=== PATIENT | female | born 1975 | race Caucasian/White ===

== ENCOUNTER 2022-04-08 23:25 | Inpatient (IN) | payer BC ==
[~2022-04-08] VITALS: Ht 165.1 cm; Wt 43.3 kg
[2022-04-09 01:00] LABS: CHLORIDE 106 mEq/L (98-107)
[2022-04-09 01:17] LABS: BASOPHILS % 0.4 % (0.0-2.0); EOSINOPHILS % 0.1 % (0.0-5.0); HEMATOCRIT. 29.4 % (36.0-48.0); HEMOGLOBIN. 9.4 g/dL (12.0-16.0); LYMPHOCYTES % 29.3 % (20.0-50.0); MEAN CORPUSCULAR HEMOGLOBIN 23.9 pg (28.0-32.0); MEAN PLATELET VOLUME 6.6 fl (7.4-10.4); MONOCYTES % 6.6 % (2.0-8.0); NEUTROPHILS % 63.6 % (40.0-76.0); PLATELET 252 x1000/uL (130-400); RED BLOOD CELL COUNT 3.92 mill/uL (4.2-5.4); RED CELL DISTRIBUTION WIDTH 18.1 % (11.6-14.6)
[2022-04-09] MEDS ORDERED: ASPIRIN 81MG TABLET PO ONE (03:45)
[2022-04-09] MEDS ORDERED: ONDANSETRON HCL 4MG/2ML INJ IV PRN (14:30)
[2022-04-09] MEDS: SODIUM CHLORIDE 0.9% 1,000 ML IV SCH (14:30)
[2022-04-09] MEDS ORDERED: ACETAMINOPHEN 325MG TABLET PO PRN (14:30)
[2022-04-09 14:59] LABS: BASOPHILS % 0.3 % (0.0-2.0); EOSINOPHILS % 0.2 % (0.0-5.0); HEMATOCRIT. 28.2 % (36.0-48.0); LYMPHOCYTES % 32.1 % (20.0-50.0); MEAN CORPUSCULAR HEMOGLOBIN 24.2 pg (28.0-32.0); MEAN PLATELET VOLUME 6.3 fl (7.4-10.4); MONOCYTES % 6.9 % (2.0-8.0); NEUTROPHILS % 60.5 % (40.0-76.0); PLATELET 229 x1000/uL (130-400); RED BLOOD CELL COUNT 3.72 mill/uL (4.2-5.4); RED CELL DISTRIBUTION WIDTH 17.9 % (11.6-14.6)
[2022-04-09] MEDS ORDERED: ENOXAPARIN 30MG/0.3ML SYR SUBCUT SCH (15:00)
[2022-04-09 15:03] LABS: CHLORIDE 106 mEq/L (98-107)
[2022-04-09] MEDS ORDERED: FOLIC ACID 1 MG, THIAMINE HCL 100 MG, MVI, ADULT NO.1 10 ML in DEXTROSE 5% WATER 1,000 ML IV NR ×4 (16:30)
[2022-04-09] MEDS: PANTOPRAZOLE SODIUM 40 MG/VIAL IV SCH (16:48)
[2022-04-09] MEDS: POTASSIUM CHLORIDE 20MEQ TABLET SR PO SCH (16:48)
[2022-04-09] MEDS ORDERED: METHYLPHENIDATE HCL 5MG TABLET PO SCH (17:00)
[2022-04-09 17:27] VITALS: BP 122/64
[2022-04-09 17:47] VITALS: BP 122/64
[2022-04-09] MEDS ORDERED: LORA-249 PO (18:00)
[2022-04-09] MEDS ORDERED: VENL-180 PO (18:00)
[2022-04-09] MEDS ORDERED: TRAZ-251 PO (18:00)
[2022-04-09] MEDS ORDERED: METH10CP15 PO (18:00)
[2022-04-09] MEDS ORDERED: BUPR100T13 PO (18:00)
[2022-04-09] MEDS ORDERED: ONDA4TAB11 PO (18:00)
[2022-04-09] MEDS ORDERED: INFLUENZA VACCINE 05/PF 0.5 ML SYRINGE IM ONE (18:30)
[2022-04-09 20:00] VITALS: BP 145/81
[2022-04-09] MEDS ORDERED: VENLAFAXINE HCL 75MG TABLET PO SCH (21:00)
[2022-04-09] MEDS: VENLAFAXINE HCL 37.5MG TABLET PO SCH (22:29)
[2022-04-09] MEDS: BUPROPION HCL 100MG SR TABLET PO SCH (23:04)
[2022-04-09] MEDS: TRAZODONE HCL 50MG TABLET PO SCH (23:04)
[2022-04-09] MEDS: LORAZEPAM 0.5MG TABLET PO PRN (23:05)
[2022-04-10] VITALS: BP 113/76
[2022-04-10] MEDS: CYANOCOBALAMIN 1000MCG/ML VIAL IM SCH ×2 (01:21→08:15)
[2022-04-10] MEDS: THIAMINE HCL 500 MG in SODIUM CHLORIDE 0.9% 95 ML IV SCH ×3 (01:21→16:37)
[2022-04-10] MEDS: FOLIC ACID 1MG TABLET PO SCH ×2 (01:22→08:16)
[2022-04-10 02:28] LABS: FOLIC ACID (FOLATE) SERUM >20 ng/mL ng/mL (>5.38); VITAMIN B12 SERUM 272 pg/mL (211-911)
[2022-04-10 02:46] LABS: CLARITY URINE TURBID (CLEAR); COLOR URINE YELLOW (YELLOW); KETONES URINE NEGATIVE (NEGATIVE); LEUKOCYTE ESTERASE URINE 1+ (NEGATIVE); NITRITE URINE NEGATIVE (NEGATIVE); OCCULT BLOOD URINE NEGATIVE (NEGATIVE); PH URINE 6.5 (4.5-8.0); PROTEIN URINE NEGATIVE (NEGATIVE); SPECIFIC GRAVITY URINE 1.017 (1.005-1.030)
[2022-04-10 03:17] LABS: *AMPHETAMINES SCREEN URINE NEGATIVE (NEGATIVE); *BARBITURATES SCREEN URINE NEGATIVE (NEGATIVE); *BENZODIAZEPINES SCREEN URINE NEGATIVE (NEGATIVE); *COCAINE SCREEN URINE NEGATIVE (NEGATIVE); CANNABINOID URINE SCREEN NEGATIVE (NEGATIVE); METHADONE URINE SCREEN NEGATIVE (NEGATIVE); OPIATES URINE SCREEN NEGATIVE (NEGATIVE); PHENCYCLIDINE URINE SCREEN NEGATIVE (NEGATIVE)
[2022-04-10 04:00] VITALS: BP 107/70
[2022-04-10] MEDS: SODIUM CHLORIDE 0.9% 1,000 ML IV SCH ×2 (06:06→16:37)
[2022-04-10 06:56] LABS: BASOPHILS % 0.5 % (0.0-2.0); EOSINOPHILS % 0.5 % (0.0-5.0); LYMPHOCYTES % 46.9 % (20.0-50.0); MEAN CORPUSCULAR HEMOGLOBIN 24.1 pg (28.0-32.0); MEAN CORPUSCULAR VOLUME 74.8 fL (81.0-99.0); MEAN PLATELET VOLUME 6.5 fl (7.4-10.4); NEUTROPHILS % 47.1 % (40.0-76.0); PLATELET 217 x1000/uL (130-400); RED BLOOD CELL COUNT 3.75 mill/uL (4.2-5.4); RED CELL DISTRIBUTION WIDTH 17.9 % (11.6-14.6)
[2022-04-10 07:16] LABS: CHLORIDE 108 mEq/L (98-107)
[2022-04-10 07:23] LABS: CREATINE KINASE 52 IU/L (26-192); CREATINE KINASE MB FRACTION 1.2 ng/mL (0.5-3.6)
[2022-04-10 08:00] VITALS: BP 91/54
[2022-04-10] MEDS: ASPIRIN 81MG TABLET PO SCH (08:22)
[2022-04-10] MEDS: VENLAFAXINE HCL 37.5MG TABLET PO SCH ×2 (08:23→21:00)
[2022-04-10] MEDS: BUPROPION HCL 100MG SR TABLET PO SCH ×3 (08:23→16:37)
[2022-04-10] MEDS: PANTOPRAZOLE SODIUM 40 MG/VIAL IV SCH (08:23)
[2022-04-10] MEDS: POTASSIUM CHLORIDE 20MEQ TABLET SR PO SCH (08:23)
[2022-04-10] MEDS ORDERED: POTASSIUM CHLORIDE 20MEQ TABLET SR PO NR (10:30)
[2022-04-10 12:00] VITALS: BP 104/53
[2022-04-10 16:00] VITALS: BP 93/74
[2022-04-10] MEDS: METHYLPHENIDATE HCL 5MG TABLET PO SCH (16:37)
[2022-04-10 20:00] VITALS: BP 91/54
[2022-04-10] MEDS: TRAZODONE HCL 50MG TABLET PO SCH (21:17)
[2022-04-10] MEDS: LORAZEPAM 0.5MG TABLET PO PRN (21:17)
[2022-04-11] VITALS: BP 103/66
[2022-04-11 04:00] VITALS: BP 96/60
[2022-04-11 06:14] LABS: BASOPHILS % 0.5 % (0.0-2.0); EOSINOPHILS % 0.7 % (0.0-5.0); HEMATOCRIT. 26.3 % (36.0-48.0); HEMOGLOBIN. 8.3 g/dL (12.0-16.0); LYMPHOCYTES % 51.4 % (20.0-50.0); MEAN CORPUSCULAR HEMOGLOBIN 24.1 pg (28.0-32.0); MEAN CORPUSCULAR VOLUME 76.7 fL (81.0-99.0); MEAN PLATELET VOLUME 6.5 fl (7.4-10.4); MONOCYTES % 7.4 % (2.0-8.0); PLATELET 195 x1000/uL (130-400); RED BLOOD CELL COUNT 3.43 mill/uL (4.2-5.4); RED CELL DISTRIBUTION WIDTH 18.1 % (11.6-14.6)
[2022-04-11] MEDS: SODIUM CHLORIDE 0.9% 1,000 ML IV SCH (07:03)
[2022-04-11 07:58] LABS: CHLORIDE 113 mEq/L (98-107)
[2022-04-11 08:00] VITALS: BP 106/69
[2022-04-11] MEDS ORDERED: NITROFURANTOIN 100MG M/M CAPSULE PO SCH (09:00)
[2022-04-11] MEDS: PANTOPRAZOLE SODIUM 40 MG/VIAL IV SCH (09:00)
[2022-04-11] MEDS: THIAMINE HCL 500 MG in SODIUM CHLORIDE 0.9% 95 ML IV SCH ×2 (09:14→17:00)
[2022-04-11] MEDS: CYANOCOBALAMIN 1000MCG/ML VIAL IM SCH (09:20)
[2022-04-11] MEDS: FOLIC ACID 1MG TABLET PO SCH (09:21)
[2022-04-11] MEDS: ASPIRIN 81MG TABLET PO SCH (09:21)
[2022-04-11] MEDS: METHYLPHENIDATE HCL 5MG TABLET PO SCH ×3 (09:21→17:54)
[2022-04-11] MEDS: BUPROPION HCL 100MG SR TABLET PO SCH ×3 (09:21→17:54)
[2022-04-11] MEDS: VENLAFAXINE HCL 37.5MG TABLET PO SCH (09:21)
[2022-04-11] MEDS: POTASSIUM CHLORIDE 20MEQ TABLET SR PO SCH (09:21)
[2022-04-11] MEDS ORDERED: NITR-87 MT (11:41)
[2022-04-11] MEDS ORDERED: THIA100T88 MT (11:41)
[2022-04-11 12:00] VITALS: BP 112/75
[2022-04-11 14:26] VITALS: BP 112/75
== END 2022-04-11 18:15 | disposition home or self-care (01) | DRG 71 ==
LOC: ER 23:25 → 3WST 04-09 03:50 → EDBEDREQ 04-09 04:04 → EDBEDREQTM 04-09 04:04
PROVIDERS: ADMIT Internal Medicine; ATTEND Internal Medicine
DX: G93.41 Metabolic encephalopathy (principal); F50.00 Anorexia nervosa, unspecified; R64 Cachexia; D64.9 Anemia, unspecified; E87.6 Hypokalemia; R41.0 Disorientation, unspecified; F41.9 Anxiety disorder, unspecified; F32.9 Major depressive disorder, single episode, unspecified; E63.9 Nutritional deficiency, unspecified; F90.9 Attention-deficit hyperactivity disorder, unspecified type; R07.9 Chest pain, unspecified; Z90.49 Acquired absence of other specified parts of digestive tract; Z79.899 Other long term (current) drug therapy; Z86.59 Personal history of other mental and behavioral disorders; Z87.891 Personal history of nicotine dependence; Z98.84 Bariatric surgery status; Z80.0 Family history of malignant neoplasm of digestive organs; Z20.822 Contact with and (suspected) exposure to COVID-19
CPT/HCPCS: 36415; 70551; 71045; 80048; 80053; 80061; 80305; 81003; 82550; 82553; 82607; 82746; 83735; 84132; 84425; 84443; 84484; 85025; 93005; 93306; 93880; 99285; C9113; J3411; J3420; J3490; J7050; J7070